=== PATIENT | male | born 1960 | race Caucasian/White ===

== ENCOUNTER 2018-11-14 15:00 | Outpatient (CLI) | payer BC, SELFPAY ==
--- NOTE | 2018-11-14 15:45 | DI.RAD_ITS ---
SYMPTOMS/DIAGNOSIS: S/P RT TKR, RECENT FALL, ASSESS IMPLANT STATUS, Z47.89 RIGHT KNEE: Comparison is made with [id number]. A total knee prosthesis has been placed since the previous exam. There is an old fracture deformity of the proximal fibula. No abnormal bony lucencies are seen. There is a joint effusion. IMPRESSION: Unremarkable knee prosthesis. Joint effusion and proximal fibular deformity. RIGHT HIP AND PELVIS: There is a right hip prosthesis. No fracture or dislocation is seen. The left hip shows mild to moderate degenerative changes. IMPRESSION: No acute abnormality.
== END 2018-11-14 15:20 ==
PROVIDERS: PCP Family Medicine; Visit Provider Orthopaedic Surgery Adult Reconstructive Orthopaedic Surgery
DX: Z96.641 Presence of right artificial hip joint (principal); M16.12 Unilateral primary osteoarthritis, left hip; Z96.651 Presence of right artificial knee joint; M25.461 Effusion, right knee; W19.XXXA Unspecified fall, initial encounter
CPT/HCPCS: 73502; 73560

== ENCOUNTER 2019-04-27 09:43 | Outpatient (CLI) | payer BC, SELFPAY ==
[2019-04-30 12:26] LABS: Hepatitis C Ab w Rflx HCV PCR Negative (NEGAT)
== END 2019-04-27 10:03 ==
PROVIDERS: PCP Family Medicine; Visit Provider Family Medicine
DX: Z11.59 Encounter for screening for other viral diseases (principal)
CPT/HCPCS: 36415; 86803

== ENCOUNTER 2020-01-25 08:04 | Outpatient (CLI) | payer BC, SELFPAY ==
--- NOTE | 2020-01-25 11:00 | DI.MRI_ITS ---
EXAM: MR CERVICAL SPINE WO CLINICAL HISTORY: RADICULOPATHY, NECK PAIN, M54.2 TECHNIQUE: Multiplanar multisequence MRI of the cervical spine was performed without intravenous con trast. COMPARISON: No exams were available for comparison FINDINGS: There is normal signal in the spinal cord. There is no evidence of tonsillar ectopia. At C7-T1, there is no significant central spinal canal or left neural foraminal stenosis. There is a small right paracentral disc herniation causing mild narrowing of the right neural foramen. At C6-C7, there is prominence of the osteophyte disc complex narrowing the AP diameter of the central spinal canal to 9 mm. Degenerative changes of the uncovertebral joints causes moderate right and mi ld left neural foraminal stenosis. At C5-C6, there is prominence of the osteophyte disc complex causing central spinal canal stenosis na rrowing the AP diameter of the canal to 6 mm. Degenerative changes of the uncovertebral joints cause moderate bilateral neural foraminal stenosis. At C4-C5, there is prominence of the osteophyte disc complex. Mild narrowing of the AP diameter of t he central spinal canal is noted. It measures 9 mm. There is mild bilateral neural foraminal narrow ing present. At C3-C4 there is no focal disc herniation, central spinal canal or significant neural foraminal sten osis. At C2-C3, there is no focal disc herniation, central spinal canal or significant neural foraminal abdulaziz nosis. Marrow signal is within normal limits. There is a large disc herniation at T1-T2. It is incompletely imaged on this examination. There myers s appear to be central spinal canal narrowing as a result. IMPRESSION: 1. Multilevel degenerative changes in the cervical spine causing central spinal canal or neural kwan inal stenosis. The findings are most marked from C4-C5 through C6-C7. 2. Disc herniation at T1-T2 which is incompletely imaged on this examination. MRI of the thoracic sp ine should be considered for further evaluation. DATA REPOSITORY:
== END 2020-01-25 08:24 ==
PROVIDERS: PCP Family Medicine; Visit Provider Family Medicine
DX: M54.2 Cervicalgia (principal); M54.12 Radiculopathy, cervical region; M50.321 Other cervical disc degeneration at C4-C5 level; M50.322 Other cervical disc degeneration at C5-C6 level; M50.323 Other cervical disc degeneration at C6-C7 level; M50.33 Other cervical disc degeneration, cervicothoracic region
CPT/HCPCS: 72141

== ENCOUNTER 2020-03-11 02:29 | Outpatient (CLI) | payer BC, SELFPAY ==
--- NOTE | 2020-03-11 | DI.RAD_ITS ---
EXAM: XR CERVICAL SPINE 1V CLINICAL HISTORY: S/P CERVICAL SPINAL FUSION,Z98.1, TECHNIQUE: COMPARISON: MR MR CERVICAL SPINE WO from 01/25/2020 FINDINGS: Single lateral view of the cervical spine was obtained. There are fixation devices at the C5-6 and C 6-7 levels which overlie the vertebral bodies. There is a slight lower cervical kyphosis. Mild hype rtrophic spurring noted anteriorly at C4-5 vertebral endplates. Disc space narrowing noted at C4-5. No other significant abnormality seen. IMPRESSION:
== END 2020-03-11 02:49 ==
PROVIDERS: PCP Family Medicine; Visit Provider Physician Assistant Medical
DX: Z98.1 Arthrodesis status (principal); M50.321 Other cervical disc degeneration at C4-C5 level
CPT/HCPCS: 72020

== ENCOUNTER 2020-06-25 01:57 | Outpatient (CLI) | payer BC, SELFPAY ==
--- NOTE | 2020-06-25 | DI.RAD_ITS ---
EXAM: XR CERVICAL SPINE COMP 4-5V CLINICAL HISTORY: S/P CERVICAL SPINAL FUSION,Z98.1 TECHNIQUE: COMPARISON: CR XR CERVICAL SPINE 1V from 03/11/2020 FINDINGS: Five views were obtained. There are anterior fusions with prosthetic discs at C5-6 and C6-7. These appear unchanged in alignment comparison examination of March 11. There is multilevel facet hypertro phy and there may be mild narrowing of neural foramina on the right at C3-4 C5-6 and C6 seven, and on the left at C4-5, C5-6, and C6-7. No other significant abnormality seen. 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 RADIATION DOSE DELIVERED: Total DLP
== END 2020-06-25 02:17 ==
PROVIDERS: PCP Family Medicine; Visit Provider Neurological Surgery
DX: M47.812 Spondylosis without myelopathy or radiculopathy, cervical region (principal); Z98.1 Arthrodesis status
CPT/HCPCS: 72050

== ENCOUNTER 2020-08-06 04:43 | Outpatient (CLI) | payer BC, SELFPAY ==
[2020-08-06 12:58] LABS: HCT 45.5 % (40.0-50.0); HGB 15.8 g/dL (13.5-17.5); MCH 31.7 pg (27.0-33.0); MCHC 34.7 % (32.0-36.0); MCV 91.4 fL (80-95); MPV 9.6 fL (8.0-11.0); Platelet Count 193 10^3/uL (130-400); RBC 4.98 10^6/uL (4.36-5.78); RDW 12.2 % (11.8-14.1); RDW-SD 40.6 fL; WBC 5.84 10^3/uL (4.4-10.8)
[2020-08-06 13:36] LABS: ALT 23 U/L (16-63); AST 15 U/L (15-37); Albumin 3.8 g/dL (3.4-5.0); Alkaline Phosphatase 70 U/L (46-116); Anion Gap 5.6 mmol/L (3-11); BUN 16 mg/dL (7-18); Bilirubin, Total 0.5 mg/dL (0.2-1.0); CO2 29.4 mmol/L (21.0-32.0); CREATININE 1.16 mg/dL (0.70-1.30); Calcium 8.8 mg/dL (8.5-10.1); Calculated LDL 107 mg/dL (<100); Chloride 106 mmol/L (98-107); Cholesterol 163 mg/dL (<200); Glucose 94 mg/dL (74-106); HDL Cholesterol 41 mg/dL (40-60); Potassium 4.7 mmol/L (3.5-5.1); Sodium 141 mmol/L (136-145); Total Protein 7.2 g/dL (6.4-8.2); Triglyceride 77 mg/dL (<150)
== END 2020-08-06 05:03 ==
PROVIDERS: PCP Family Medicine; Visit Provider Family Medicine
DX: Z00.00 Encounter for general adult medical examination without abnormal findings (principal); Z13.220 Encounter for screening for lipoid disorders; Z13.228 Encounter for screening for other metabolic disorders
CPT/HCPCS: 36415; 80053; 80061; 85027

== ENCOUNTER 2021-08-11 02:34 | Outpatient (CLI) | payer BC, SELFPAY ==
[2021-08-11] MEDS: Albuterol HFA 18 GM 200 PUFF INH IH (14:54)
[2021-08-11] MEDS: Inhaler, Assist Device 1 EACH MC (14:54)
--- NOTE | 2021-08-21 10:33 | W.PFT ---
Date of service: 08/11/21 Time of Service: 13:00 Pulmonary Function Test Result Requesting Provider Yamileth Hernandez Indications: Upper airway congestion Interpretation Spirometry: There is no airflow obstruction. There is no significant bronchodilator effect. Lung Volumes: Lung volumes are normal. Diffusion Capacity: The diffusion is normal. Airway Pressure: Airways resistance is normal. Impression Normal pulmonary function testing. Clinical Correlation therefore is recommended.
== END 2021-08-11 02:35 | disposition home or self-care (01) ==
LOC: RT 02:35
PROVIDERS: PCP Family Medicine; Visit Provider Family Medicine
DX: J98.8 Other specified respiratory disorders (principal)
CPT/HCPCS: 94060; 94726; 94729

== ENCOUNTER 2021-09-09 12:08 | Outpatient (REF) | payer BC, SELFPAY ==
--- NOTE | 2021-09-09 11:00 | SKI_PTH ---
PATIENT: Dimitri Middleton LOC: N U#:[id number] AGE/SX: 61/M ROOM: RE09/09/[address]: Yamileth Hernandez : 1960 BED: DIS: 09/09/2021 SPEC #: [id number] RECD: 09/09/21 12:51 STATUS: KENYA BRODY #: [id number] SINAN: 09/09/21 11:[address]: Yamileth Hernandez DEPT: Surgical Specimen RECD BY: Rehana Freitas Tissues: 1 - SKIN BIOPSY(SHAVE/PUNCH) Procedures: SKIN LEVEL 4 Comments: [id number]
== END 2021-09-09 12:09 | disposition home or self-care (01) ==
LOC: LBN 12:08
PROVIDERS: PCP Family Medicine; Visit Provider Family Medicine
DX: L82.1 Other seborrheic keratosis (principal)
CPT/HCPCS: 88305

== ENCOUNTER 2021-09-30 12:38 | Outpatient (CLI) | payer BC, SELFPAY ==
--- NOTE | 2021-09-30 11:00 | DI.RAD_ITS ---
Exam(s) XR KNEE LT 3V AP,LAT,AYAKA EXAM: XR KNEE LT 3V AP,LAT,AYAKA CLINICAL HISTORY: left knee pain, M25.562, G89.29. TECHNIQUE: 2D digital imaging was performed of the left knee. Three images were obtained. AP, PA t unnel and lateral views were obtained. COMPARISON: No previous for comparison. FINDINGS: BONES: No acute fracture is present. No bony destructive lesion is seen. Enthesophytes are seen at t he superior patella. JOINTS: There is tricompartment periarticular spurring. Joint space narrowing is seen in the femoral tibial joint. No joint effusion is seen. SOFT TISSUE: Surgical clips are seen in the soft tissues. IMPRESSION: Degenerative changes in the left knee. DATA REPOSITORY: RADIATION DOSE DELIVERED:
== END 2021-09-30 12:58 ==
PROVIDERS: PCP Family Medicine; Visit Provider Family Medicine
DX: M25.562 Pain in left knee (principal); M17.12 Unilateral primary osteoarthritis, left knee; G89.29 Other chronic pain
CPT/HCPCS: 73562

== ENCOUNTER 2023-05-20 07:50 | Day surgery (SDC) | payer BC, SELFPAY ==
--- NOTE | 2023-05-19 22:12 | PDOC.DSDIS_ITS ---
Date of service: 05/20/23 Time of Service: 10:54 Discharge Plan Disposition Patient Disposition: Home Condition: Good Discharge Details Reason For Visit: colon scope Attending Provider: Delmi Richardson Primary Care Provider: Yamileth Hernandez Home Meds and New Rx's Prescriptions: Continued diclofenac sodium [Voltaren Arthritis Pain] 1 % gel 4 g topical QID Qty: 100 3RF Rx Instructions: apply to single knee, ankle, foot; for foot includes sole/toes/top of foot meclizine 12.5 mg tablet 12.5 mg PO Q6H PRN Qty: 50 1RF oxycodone 10 mg tablet 10 mg PO DAILY MDD 10mg PRN (Reason: pain) Qty: 10 0RF Discontinued bisacodyl [Dulcolax (bisacodyl)] 5 mg tablet,delayed release (DR/EC) 5 mg PO ONCE Qty: 4 0RF Rx Instructions: Take per colonoscopy instructions provided by ordering providers office polyethylene glycol 3350 17 gram/dose powder 17 g PO ONCE Qty: 238 0RF Rx Instructions: Take per colonoscopy instructions provided by ordering providers office Discharge Instructions Additional Instructions: DSU Colonoscopy Post- Op Instructions Instructions for Everyone who is given Anesthesia: For your safety, please do the following for the next twenty-four (24) hours: *Do Not operate a motor vehicle (car, truck, motorcycle, etc.) *Do Not drink alcoholic beverages or use any recreational drugs for the first 24 hours or while taking pain medications. The medications in your body may have a reaction that can be dangerous. *Do Not make any important decisions or sign any important papers. Findings: normal Follow up: Repeat in 10 yrs time 1. No lifting over 20 pounds or strenuous activity for the first 24 hours after your procedure. After 24 hours there are no restrictions on your activity but you may feel fatigued for a few days. 2. After you arrive home you may have a light meal and return to your normal diet as you can tolerate it without feeling sick to your stomach. 3. You may have a bloated, gaseous feeling in your belly (abdomen) after a colonoscopy. Passing gas and belching will help. Walking or lying down on your left side with your knees flexed may relieve the discomfort. Call the office at [phone] (Office) or [phone] (Hospital) right away if you notice any of the following: a.Vomiting of blood or ?coffee ground stools?. b.Rectal bleeding 1Tbsp, blood clots or continuous bleeding. c.Severe belly (abdominal) pain. d.A hard distended belly (abdomen) and an inability to pass gas. 4. Please don?t expect to have a normal BM (bowel movement) for 2-3 days after your procedure. 5. If there are questions regarding the findings of your procedure, please contact your doctor 6. If you are unable to contact your doctor with a problem, contact the hospital at [phone]. 7. Continue all your regular medications unless directed otherwise. I understand the above instructions and have no questions. Signature of Patient or Adult Escort Name of Responsible Adult Escort Signature of Nurse Date/Time Activity:: see above Diet:: see abpve Discharge Orders Discharge Orders: Discharge Order (Routine); Ordered 05/20/23 Ordered By: Delmi Richardson DS: Diagnosis Discharge Diagnosis (1) Urinary incontinence: Status: Acute (2) Obstructive sleep apnea hypopnea, mild: Status: Acute (3) Screening for malignant neoplasm performed: Status: Acute Asessment and Plan: The patient is seen and examined after their colonoscopy.? The patient has been able to pass gas.? They are not having abdominal pain.? They have been able to tolerate liquids and a snack.? They do not have any nausea or vomiting.? They are not having any chest pain or shortness of breath.??? They are not having any rectal bleeding. Their vital signs have been stable-see nursing notes. We discussed findings during their colonoscopy, and any biopsies that were done/polyps that were removed. The patient will be sent a letter with any biopsy results, and when to repeat the colonoscopy.-see discharge instructions. Patient was given explicit instructions to follow-up regarding colonoscopy-refer to discharge instructions.? We reviewed resumption of medications. Patient verbalized understanding and discharged in stable and satisfactory condition- See nursing notes.
--- NOTE | 2023-05-19 22:14 | COLE_ITS ---
Date of service: 05/20/23 Time of Service: 10:00 Colonoscopy Report Date of procedure: 05/20/23 Pre-op diagnosis general: CRC screening Post-op diagnosis procedure note: other (normal ) Surgeon: Delmi Richardson Anesthesia Type: General:No Airway Estimated blood loss (mL): 0 Complications: None Disposition: same day Prep: Miralax/Dulcolax Retraction Time: 9 Procedure Description: After informed consent was obtained the patient was taken to the procedure room and placed in a left decubitous position. Monitors were applied and a time out was done. The patients name, date of , procedure, allergies to medications and metal in their body was reviewed. The patient was then sedated. Once sedated and comfortable a rectal exam was done. External exam was normal. Internal exam revealed a normal sphincter tone and no palpable masses. The p rostate normal. The scope was then introduced and retrofelexed. No internal hemorrhoids were identified. The scope was then advanced to the cecum without difficulty. The TI and appendiceal orifice were identified. The prep was BBPS 3 in all segments for a total of 9. The scope was then slowly retracted over 9 minutes back into the rectum. There are no polyps, AVMs, or diverticula visualized. The mucosa is pink and healthy with a normal vascular pattern. The scope was removed and the patient was woken up and taken back to Same day surgery in stable condition. The patient tolerated the procedure well and there were no immediate complications. Follow up: The patient should follow up in 10 years unless they develop changes in bowel habits or other new gastrointestinal complaints.
[2023-05-20 08:05] VITALS: BP 129/71; PULSE 46; RESP 19; TEMP 36.6; O2SAT 99
[2023-05-20] MEDS: Lactated Ringers 1,000 ML 80 ML IV (08:16)
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
[2023-05-20 09:34] VITALS: BMI 35.0
[2023-05-20 10:17] VITALS: BP 94/59; PULSE 44; RESP 16; TEMP 36.2; O2SAT 94
[2023-05-20 10:47] VITALS: BP 106/71; PULSE 50; RESP 18; TEMP 36.1; O2SAT 98
--- NOTE | 2023-05-20 11:38 | W.ANESPOSTOP ---
Postoperative Evaluation Date, Time and Location Date Performed: 05/20/23 Time Performed: 10:55 Patient Location: Day Surgery Unit Vital Signs Most Recent Imported Vital Signs: Most Recent Vital Signs Temp Pulse Resp BP Pulse Ox 36.1 C L 50 L 18 106/71 98 05/20/23 10:47 05/20/23 10:47 05/20/23 10:47 05/20/23 10:47 05/20/23 10:47 Pain Score Most Recent Pain Score: Most Recent Pain Score Pain Level 0 05/20/23 10:47 Assessment Mental Status: Awake (Alert & Oriented to Patient Baseline) Airway and Respiratory Function: Patent airway with normal (patient baseline) respiratory exam Cardiovascular Function: Hemodynamically Stable Hydration Status: Adequately Hydrated Nausea & Vomiting: No Nausea or Vomiting Pain: Pt. Denies Any Pain Peripheral Nerve Block: Patient did not receive a nerve block
== END 2023-05-20 11:33 | disposition home or self-care (01) ==
PROVIDERS: PCP Family Medicine; Visit Provider Surgery
PROC: 0DJD8ZZ Inspection of Lower Intestinal Tract, Via Natural or Artificial Opening Endoscopic (ICD-10-PCS; CPT 45378; principal; 2023-05-20 09:15)
DX: Z12.11 Encounter for screening for malignant neoplasm of colon; G47.33 Obstructive sleep apnea (adult) (pediatric)
CPT/HCPCS: 45378

== ENCOUNTER 2023-08-22 03:51 | Outpatient (CLI) | payer BC, SELFPAY ==
[2023-08-22 14:12] LABS: Calculated LDL 86 mg/dL (<100); Cholesterol 159 mg/dL (<200); HDL Cholesterol 43 mg/dL (40-60); Triglyceride 154 mg/dL (<150)
== END 2023-08-22 03:52 | disposition home or self-care (01) ==
PROVIDERS: PCP Family Medicine; Visit Provider Family Medicine
DX: E66.8 Other obesity (principal); Z13.6 Encounter for screening for cardiovascular disorders
CPT/HCPCS: 36415; 80061

== ENCOUNTER 2023-08-22 14:08 | Outpatient (REF) | payer BC, SELFPAY ==
--- NOTE | 2023-08-22 14:00 | SKI_PTH ---
PATIENT: Dimitri Middleton LOC: [facility] U#:[id number] AGE/SX: 63/M ROOM: RE08/22/[address]: Nay Umanzor MD : 1960 BED: DIS: 08/22/2023 SPEC #: [id number] RECD: 08/22/23 16:39 STATUS: KENYA REElizabeth #: [id number] SINAN: 08/22/23 14:[address]: Nay Umanzor DEPT: Surgical Specimen RECD BY: Rehana Freitas ENTERED: 08/22/23 16:43 SP TYPE: DAYANA BROWN DR: Yamileth Hernandez Tissues: 1 - SKIN BIOPSY(SHAVE/PUNCH) Procedures: SKIN LEVEL 4 Comments: [id number]
== END 2023-08-22 14:09 | disposition home or self-care (01) ==
LOC: LBN 14:08
PROVIDERS: PCP Family Medicine; Visit Provider Surgery
DX: L30.8 Other specified dermatitis (principal); L98.8 Other specified disorders of the skin and subcutaneous tissue; L90.5 Scar conditions and fibrosis of skin
CPT/HCPCS: 88305

== ENCOUNTER 2023-10-12 15:29 | Outpatient (CLI) | payer BC, SELFPAY ==
--- NOTE | 2023-10-12 15:15 | RT.EKG_ITS ---
APPROVED REPORT Exam: Resting ECG Reason for Exam: bradycardia Patient Location: O HR:51 bpm ECG Measurements Heart Rate 51 AXIS GA 164 P 12 QRSd 95 QRS -9 QT 435 T 21 QTc 401 Conclusion Sinus rhythm...normal P axis, V-rate 50- 99 I have reviewed and interpreted ECG and agree with software generated interpretation.
== END 2023-10-12 15:30 | disposition home or self-care (01) ==
LOC: DI.CM 15:29
PROVIDERS: PCP Family Medicine; Visit Provider Family Medicine
DX: R00.1 Bradycardia, unspecified (principal)
CPT/HCPCS: 93010

== ENCOUNTER 2024-07-20 13:52 | Outpatient (CLI) | payer MEDICARE, SELFPAY ==
[2024-07-20 11:45] LABS: ALT 22 U/L (16-63); AST 15 U/L (15-37); Albumin 3.7 g/dL (3.4-5.0); Alkaline Phosphatase 85 U/L (46-116); Anion Gap 8.1 mmol/L (3-11); BUN 15 mg/dL (7-18); Bilirubin, Total 0.47 mg/dL (0.2-1.0); CO2 26.9 mmol/L (21.0-32.0); CREATININE 1.5 mg/dL (0.70-1.30); Calcium 9.1 mg/dL (8.5-10.1); Chloride 108 mmol/L (98-107); Estimated GFR 51.35 (mL/min/1.73m2); Glucose 91 mg/dL (74-106); Potassium 4.4 mmol/L (3.5-5.1); Sodium 143 mmol/L (136-145); Total Protein 7.8 g/dL (6.4-8.2)
== END 2024-07-20 13:53 | disposition home or self-care (01) ==
LOC: LBO 13:52
PROVIDERS: PCP Family Medicine; Visit Provider Family Medicine
DX: Z00.00 Encounter for general adult medical examination without abnormal findings (principal); R42 Dizziness and giddiness; H53.8 Other visual disturbances; R00.1 Bradycardia, unspecified
CPT/HCPCS: 36415; 80053

== ENCOUNTER 2024-08-03 19:09 | Outpatient (REF) | payer MEDICARE, SELFPAY ==
[2024-08-03 14:07] LABS: COMMENT (LAB VIEW ONLY) 48.81 mg/dL; PROTEIN < 6.0 mg/dL
== END 2024-08-03 19:10 | disposition home or self-care (01) ==
LOC: LBN 19:09
PROVIDERS: PCP Family Medicine; Visit Provider Family Medicine
DX: N18.9 Chronic kidney disease, unspecified (principal)
CPT/HCPCS: 82565; 84156

== ENCOUNTER 2024-08-07 01:26 | Outpatient (CLI) | payer MEDICARE, SELFPAY ==
--- NOTE | 2024-08-07 06:15 | DI.MRI_ITS ---
Exam(s) MR BRAIN WO/W EXAM: MR BRAIN WO/W CLINICAL HISTORY: lt eye blurred vision,dizziness,r42,h53.8. TECHNIQUE: Multiplanar multisequence MRI of the brain was performed. CONTRAST MATERIAL: IV Contrast: 20 ML of Dotarem contrast administered. COMPARISON: No exams were available for comparison FINDINGS: VENTRICLES AND EXTRA AXIAL SPACES: Normal in size and morphology for the patient's age. HEMORRHAGE: None. CEREBRAL PARENCHYMA: No focus of restricted diffusion to suggest acute infarct. No space-occupying le jen identified. BRAINSTEM/CEREBELLUM: Normal. CALVARIUM: Normal. ENHANCEMENT: No suspicious enhancement identified. VISUALIZED PARANASAL SINUSES/MASTOIDS: Clear. Orbits: Unremarkable. Extraocular muscles and optic nerves are symmetric. No abnormal signal within the intraconal fat. Globes appear intact. Pituitary: Not enlarged. Vasculature: Normal flow voids. IMPRESSION: Unremarkable MRI of the brain. DATA REPOSITORY:
[2024-08-07] MEDS: Normal Saline Flush 10 ML SYR IVP (08:47)
[2024-08-07] MEDS: Gadoterate meglumine 20 ML SYRINGE IVP (08:48)
== END 2024-08-07 01:46 ==
LOC: DI 01:26
PROVIDERS: PCP Family Medicine; Visit Provider Family Medicine
DX: H53.8 Other visual disturbances (principal); R42 Dizziness and giddiness
CPT/HCPCS: 70553

== ENCOUNTER 2024-08-13 12:55 | Outpatient (RCR) | payer MEDICARE, SELFPAY | END 2024-09-08 23:59 | disposition home or self-care (01) | LOC: CARDOPNVT 12:55 | PROVIDERS: PCP Family Medicine; Visit Provider Internal Medicine Cardiovascular Disease | DX: R00.1 Bradycardia, unspecified (principal); Z51.89 Encounter for other specified aftercare | CPT/HCPCS: 93227; 93225; 93226 ==

== ENCOUNTER 2024-08-17 15:07 | Outpatient (CLI) | payer MEDICARE, SELFPAY ==
[2024-08-17 16:17] LABS: Uric Acid 8.1 mg/dL (3.5-7.2)
[2024-08-17 23:19] LABS: PSA, Screening 0.3 ng/mL (<=4.5)
[2024-08-19 13:18] LABS: eGFR by Cystatin C 76 mL/min/BSA (>60)
== END 2024-08-17 15:08 | disposition home or self-care (01) ==
LOC: LBO 15:08
PROVIDERS: PCP Family Medicine; Visit Provider Family Medicine
DX: N18.9 Chronic kidney disease, unspecified (principal); Z12.5 Encounter for screening for malignant neoplasm of prostate; Z23 Encounter for immunization; Z72.0 Tobacco use; I10 Essential (primary) hypertension; E66.812 Obesity, class 2; E66.09 Other obesity due to excess calories; Z68.36 Body mass index [BMI] 36.0-36.9, adult; R42 Dizziness and giddiness; H53.8 Other visual disturbances; R00.1 Bradycardia, unspecified
CPT/HCPCS: 36415; 82610; 84153; 84550

== ENCOUNTER 2024-08-22 01:09 | Outpatient (CLI) | payer MEDICARE, SELFPAY ==
--- NOTE | 2024-08-22 09:40 | DI.US_ITS ---
Exam(s) US AAA SCREENING EXAM: US AAA SCREENING CLINICAL HISTORY: hx tobacco abuse, screening for aaa,z72.0 COMPARISON: No exams were available for comparison FINDINGS: Abdominal Aorta: Proximal: 2.0 x 1.9 cm Mid: 1.8 x 1.9 cm Distal: 2.0 x 1.9 cm Iliac's: Right: 1.3 x 0.9 cm Left: 1.3 x 1.3 cm No significant atherosclerotic disease is seen. IMPRESSION: No evidence of abdominal aortic aneurysm. DATA REPOSITORY:
== END 2024-08-22 01:29 ==
LOC: DI 01:09
PROVIDERS: PCP Family Medicine; Visit Provider Family Medicine
DX: Z72.0 Tobacco use (principal); Z13.6 Encounter for screening for cardiovascular disorders
CPT/HCPCS: 76706

== ENCOUNTER 2025-07-29 16:25 | Outpatient (CLI) | payer MEDICARE, SELFPAY ==
--- NOTE | 2025-07-29 16:38 | DI.RAD_ITS ---
Exam(s) XR LUMBAR SPINE COMPLETE EXAM: XR LUMBAR SPINE COMPLETE CLINICAL HISTORY: M54.41,M54.42,G89.29 LBP, Lt leg numbness/pain. TECHNIQUE: 2D digital imaging was performed. Five views. COMPARISON: No exams were available for comparison FINDINGS: BONES: No fracture or destructive lesion. Vertebral body heights are maintained. There are prominent endplate osteophytes with with bridging. Smaller osteophytes are seen at L4-5 and L5-S1. Facet degenerative changes noted throughout. Right hip prosthesis. DISKS: Disc space narrowing noted throughout. ALIGNMENT: Mild to moderate degenerative dextro rotoscoliosis. No spondylolysis or spondylolisthesis. SOFT TISSUE: Normal. IMPRESSION: Severe degenerative changes throughout the lumbar spine. Degenerative dextro rotoscoliosis. DATA REPOSITORY: RADIATION DOSE DELIVERED:
--- NOTE | 2025-07-29 17:10 | DI.RAD_ITS ---
Exam(s) XR KNEE LT 3V AP,LAT,AYAKA EXAM: XR KNEE LT 3V AP,LAT,AYAKA CLINICAL HISTORY: M25.562 Pain Left knee, Worsening pain. TECHNIQUE: 2D digital imaging was performed. Three views. COMPARISON: CR XR KNEE LT 3V AP,LAT,AYAKA from 09/30/2021 FINDINGS: BONES: No acute fracture is present. Old proximal fibular fracture. No bony destructive lesion is seen. JOINTS: There is severe narrowing of the lateral femoral tibial joint space and moderate narrowing of the medial femoral tibial joint space. There is periarticular spurring. There is also prominent spurring at the patellofemoral joint. There is a chronic appearing bony projection at the superior aspect of the patella. There is enthesophyte at the quadriceps insertion. No joint effusion is seen. SOFT TISSUE: Vascular clips. IMPRESSION: Advanced degenerative changes of the left knee. DATA REPOSITORY: RADIATION DOSE DELIVERED:
== END 2025-07-29 16:45 ==
LOC: DI 16:26
PROVIDERS: PCP Family Medicine; Visit Provider Nurse Practitioner Family
DX: M54.41 Lumbago with sciatica, right side (principal); M54.42 Lumbago with sciatica, left side; G89.29 Other chronic pain; M25.562 Pain in left knee
CPT/HCPCS: 73562; 72110

== ENCOUNTER → 2025-08-15 14:41 | Outpatient (BNVA) | payer MEDICARE, SELFPAY | PROVIDERS: PCP Family Medicine; Referring Provider Family Medicine; Visit Provider Student in an Organized Health Care Education/Training Program | DX: M17.12 Unilateral primary osteoarthritis, left knee (principal); T84.82XA Fibrosis due to internal orthopedic prosthetic devices, implants and grafts, initial encounter; Z96.651 Presence of right artificial knee joint | CPT/HCPCS: 99214 ==

== ENCOUNTER → 2025-08-27 02:04 | Outpatient (CLI) | payer MEDICARE, SELFPAY ==
--- NOTE | 2025-08-27 06:45 | DI.MRI_ITS ---
Exam(s) MR LUMBAR SPINE WO EXAM: MR LUMBAR SPINE WO CLINICAL HISTORY: subacute left leg radiculopathy, h/o surgery,m54.16,radiculopathy. TECHNIQUE: Multiplanar multisequence MRI of the Lumbar spine was performed. COMPARISON: MR MRI - LUMBAR SPINE WO CONTRAST from 01/07/2017 CR XR KNEE LT 3V AP,LAT,AYAKA from 07/29/2025 CR XR LUMBAR SPINE COMPLETE from 07/29/2025 FINDINGS: Bones: The last intervertebral disc space is designated the L5/S1 level for the numbering purpose of this examination. The vertebral body heights are well maintained. Prominent endplate osteophytes. Alignment: Mild degenerative scoliosis. The marrow signal characteristics are unremarkable. Cord: The conus tip ends at the L1-2 level. It is of normal size and signal intensity. T12-L1: No focal disc herniation is present. No central spinal canal stenosis.No neural foraminal stenosis. L1-2:Mild loss of disc height. Endplate osteophytes projecting mainly anteriorly. No focal disc herniation is present. No central spinal canal stenosis.No neural foraminal stenosis. L2-3:Mild loss of disc height eccentric toward the left. Prominent left-sided osteophytes. Mild facet degenerative changes. Mild central canal stenosis. Severe left and mild to moderate right neural foraminal narrowing. L3-4: Severe loss of disc height, eccentric toward the left where there are prominent endplate osteophytes. Degenerative signal changes are present in the endplates.No focal disc herniation is present. No central spinal canal stenosis.Severe left and moderate right neural foraminal narrowing. L4-5:Mild loss of disc height eccentric toward the right. Broad-based disc bulging. Facet degenerative changes and ligamentous hypertrophy combining to produce severe central canal stenosis. Moderate to severe bilateral neural foraminal narrowing. No focal disc herniation is present. L5-S1: Onjw-xw-oyvqcntb loss of disc height, eccentric toward the right. Endplate osteophytes projecting toward the right. Mild facet joint degenerative changes. Mild diffuse disc bulging. Mild left and moderate right neural foraminal narrowing.No focal disc herniation is present. No central spinal canal stenosis The visualized SI joints and sacrum are unremarkable. Soft tissues: The paraspinal soft tissues are unremarkable. IMPRESSION: Advanced degenerative disc changes throughout. The findings are most severe at L4-5 where severe central canal stenosis as well as bilateral neural foraminal narrowing.. DATA REPOSITORY:
== END ==
LOC: DI 02:04
PROVIDERS: PCP Family Medicine; Visit Provider Family Medicine
DX: M54.16 Radiculopathy, lumbar region (principal); M51.360 Other intervertebral disc degeneration, lumbar region with discogenic back pain only
CPT/HCPCS: 72148

== ENCOUNTER 2025-08-27 03:30 | Outpatient (CLI) | payer MEDICARE, SELFPAY ==
[2025-08-27 11:42] LABS: Anion Gap 8.5 mmol/L (3-11); BUN 17 mg/dL (9-23); CO2 24.5 mmol/L (20.0-31.0); Calcium 9.0 mg/dL (8.3-10.6); Chloride 110 mmol/L (98-107); Glucose 94 mg/dL (74-106); Potassium 4.3 mmol/L (3.5-5.1); Sodium 143 mmol/L (136-145)
[2025-08-27 14:18] LABS: Hemoglobin A1C 5.2 % (<5.7)
[2025-08-28 15:16] LABS: PSA, Screening 0.4 ng/mL (<=4.5)
== END 2025-08-27 03:31 | disposition home or self-care (01) ==
LOC: LBO 03:30
PROVIDERS: PCP Family Medicine; Visit Provider Family Medicine
DX: Z12.5 Encounter for screening for malignant neoplasm of prostate (principal); R73.01 Impaired fasting glucose; I10 Essential (primary) hypertension; N18.31 Chronic kidney disease, stage 3a; E66.812 Obesity, class 2; E66.09 Other obesity due to excess calories; Z68.36 Body mass index [BMI] 36.0-36.9, adult
CPT/HCPCS: 36415; 80048; 84153; 83036

== ENCOUNTER → 2025-09-04 01:51 | Outpatient (CLI) | payer MEDICARE, SELFPAY ==
--- NOTE | 2025-09-04 09:38 | DI.NM_ITS ---
Exam(s) NM BONE SCAN 3 PHASE EXAM: NM BONE SCAN 3 PHASE CLINICAL HISTORY: R KNEE PAIN, ?LOOSENING PROSTHETIC DEVICE,T84.84XA. TECHNIQUE: Injected Dose: 25 mCi Tc-99m MDP COMPARISON: CR RIGHT KNEE 3 VIEWS from 01/01/2013 CR XR knee RT 2V AP,lat from 11/14/2018 CR XR hip RT complete AP pelvis from 11/14/2018 CR XR KNEE LT 3V AP,LAT,AYAKA from 09/30/2021 CR XR LUMBAR SPINE COMPLETE from 07/29/2025 CR XR KNEE LT 3V AP,LAT,AYAKA from 07/29/[address] LOWER EXTREMITY RT WO from 09/04/2025 FINDINGS: Perfusion: There is slightly increased activity at the lateral right knee. Blood Pool: Slightly increased activity laterally in the right leg below the level of the knee prosthesis. Delayed: No suspicious increased activity is noted around the right knee prosthesis. There is increased activity in the left knee joint spaces, greater laterally consistent with jet degenerative changes noted on plain films. There is increased activity in the mid right tibia and fibula as well as in the right ankle she likely secondary to post traumatic findings. No plain films are available of this region. IMPRESSION: 1. No findings to suggest loosening of the knee prosthesis. 2. Increased activity at the left knee consistent with advanced degenerative changes. DATA REPOSITORY:
--- NOTE | 2025-09-04 09:38 | DI.CT_ITS ---
Exam(s) CT LOWER EXTREMITY RT WO EXAM: CT LOWER EXTREMITY RT WO CLINICAL HISTORY: R KNEE PAIN, ? LOOSENING PROSTHETIC DEVICE,T84.84XA. TECHNIQUE: Imaging Protocol: Axial computed tomography images with coronal and sagittal reformatted images were created and reviewed. COMPARISON: CR XR knee RT 2V AP,lat from 11/14/2018 FINDINGS: Bones: The patient has a right total knee arthroplasty. There is no acute fracture or dislocation present. There is some lucency around the tibial component medially. This is unchanged compared to the examination from 11/14/2018. There is no other lucency seen around the orthopedic hardware. There are enthesophytes at the anterior patella. Well corticated osseous densities are seen superior to the patella these appear chronic. There also stable calcifications seen in the anterior and posterior joint space. There is an old proximal fibular fracture deformity. There are no suspicious lytic or sclerotic lesions in the bone. There is minimal fluid in the joint space. Soft Tissues: Atherosclerotic calcification is present. IMPRESSION: 1. There is a stable appearance of the right total knee arthroplasty since 11/14/2018. There are no new lucent areas around the orthopedic hardware to suggest loosening. 2. There is a small amount of fluid in the joint space. 3. There is no acute fracture or dislocation. RADIATION DOSE DELIVERED: 191.49mGy.cm Total DLP 191.49mGy.cm Total DLP DATA REPOSITORY: All CT scans at this facility are submitted to the National Radiology Data Registry (NRDR) Dose Index Registry (DIR) with the [employer] ([employer]). RADIATION OPTIMIZATION: All CT scans at this facility use at least one of these dose optimization techniques: automated exposure control; mA and/or kV adjustment per patient size (includes targeted exams where dose is matched to clinical indication); or iterative reconstruction.
== END ==
LOC: DI 01:52
PROVIDERS: PCP Family Medicine; Visit Provider Student in an Organized Health Care Education/Training Program
DX: T84.84XA Pain due to internal orthopedic prosthetic devices, implants and grafts, initial encounter (principal); M17.12 Unilateral primary osteoarthritis, left knee; Z96.651 Presence of right artificial knee joint
CPT/HCPCS: 73700; 78315

== ENCOUNTER → 2025-09-12 14:06 | Outpatient (BNVA) | payer MEDICARE, SELFPAY | PROVIDERS: PCP Family Medicine; Referring Provider Family Medicine; Visit Provider Student in an Organized Health Care Education/Training Program | DX: T84.82XA Fibrosis due to internal orthopedic prosthetic devices, implants and grafts, initial encounter (principal); M17.12 Unilateral primary osteoarthritis, left knee | CPT/HCPCS: 99214 ==

== ENCOUNTER 2025-10-08 11:15 | Day surgery (SDC) | payer MEDICARE, SELFPAY ==
[2025-10-08] VITALS (33 sets, daily range): BP systolic 112–143; BP diastolic 55–88; PULSE 44–64; RESP 11–21; TEMP 36.1–36.6; O2SAT 95–99; BMI 36.5
--- NOTE | 2025-10-08 07:35 | W.PM.DSUDISC ---
Date of service: 10/08/25 Discharge Plan Disposition Patient Disposition: Home Condition: Good Discharge Details Reason For Visit: Painful right TKA Attending Provider: Clayton Howard Primary Care Provider: Yamileth Hernandez Home Meds and New Rx's Prescriptions: New acetaminophen 500 mg tablet 1,000 mg PO Q8H PRN Qty: 90 0RF Rx Instructions: Take two tablets up to every 8 hours as needed for pain ibuprofen 600 mg tablet 600 mg PO TID PRN (Reason: pain) Qty: 60 0RF oxycodone 10 mg tablet 10 mg PO Q4H PRNQty: 12 0RF Rx Instructions: Take one tablet up to every 4 hours as needed for severe postoperative pain Continued betamethasone valerate 0.1 % cream 1 applic topical BID PRN (Reason: rash) Rx Instructions: apply to affected area for 4 weeks sildenafil 100 mg tablet 100 mg PO DAILY PRN (Reason: sexual activity) Qty: 4.0 0RF Rx Instructions: administer 30 minutes to 4 hours before activity No Action oxycodone 10 mg tablet 10 mg PO BID MDD 20mg PRN (Reason: pain) Qty: 30 0RF Discharge Instructions Additional Instructions: Arthroscopic Synovectomy Discharge Instructions Activity: You should begin moving as soon as possible. You may work on flexion but also equally maintain extension. You may bear weight as tolerated, using crutches only for support/comfort. You should apply CryoCuff to help with swelling and elevate when possible (especially in the first few days). Dressings: The knee dressing may come down after 48 hours. You may shower and get the wound wet at that time. You should keep the wounds covered with a bandaid until follow-up. Medications: - Recommend to take up to 1000mg of Acetaminophen (Tylenol) and 600mg of Ibuprofen (Advil) every 8 hours as needed. These larger strength tablets were called in but you also may use [id number]. - You have also been prescribed a few additional Oxycodone tablets to take as needed for pain. Follow-up: 7-10 days Stand Alone Forms: Portal Information Referrals: Clayton Howard MD [ [facility] STAFF PHYSICIAN, Orthopaedic Surgical] Equipment/Supplies: Partial Weight Bearing Crutches Activity:: Elevate Remove Dressings/Wound Care:: 48 hours Shower/Bathe:: 48 hours Diet:: As Tolerated Discharge Orders Discharge Orders: Discharge Order (Routine); Ordered 10/08/25 Ordered By: Delmi Ledezma
[2025-10-08] MEDS: Gabapentin 300 MG CAP PO (12:46)
[2025-10-08] MEDS: Acetaminophen 500 MG TAB 1000 MG PO (12:46)
[2025-10-08] MEDS: Celecoxib 200 MG CAP 400 MG PO (12:46)
[2025-10-08] MEDS: Lactated Ringers 1,000 ML 80 ML IV (12:55)
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
[2025-10-08] MEDS: ceFAZolin 2 GM/50 ML BAG IVPB (15:05)
[2025-10-08] MEDS: TRANEXAMIC ACID/SOD. CHL. 1,000 MG/100 ML BAG 600 MG IVPB (15:12)
[2025-10-08] MEDS: EPINEPHrine 10 MG/10 ML ML (15:19)
[2025-10-08] MEDS: Bupivacaine 0.25% Pres-Free 30 ML VIAL (15:37)
--- NOTE | 2025-10-08 16:09 | ROE_ITS ---
Operative Note Operative Note PRE-OP DIAGNOSIS: Arthrofibrosis of Knee Replacement -right knee POST-OP DIAGNOSIS: same PROCEDURE: Arthroscopic Synovectomy of 3 Compartments with Manipulation -right knee SURGEON: Clayton Howard ANESTHESIA TYPE: General LMA/ETT Refer to Anesthesia Record ESTIMATED BLOOD LOSS: 10 PATHOLOGY: none sent TOURNIQUET TIME: 0 COMPLICATIONS: None Patient was transported to: PACU Patient's condition: stable Indications: I have seen Paul in clinic for symptoms of arthrofibrosis of the knee following knee replacement surgery. Nonoperative measures were exhausted but disability due to lack of motion persisted. I discussed knee arthroscopy with synovectomy with maniuplation with the patient. I reviewed the risks of the procedure to include, but not limited to, bleeding, infection, pain, continued stiffness, recurrence, blood clot. Despite these risks, the patient elected to proceed. Findings: Preoperative Range of Motion: Flexion: 75 Extension:5 Postoperative Range of Motion: Flexion:100 Extension:5 Procedure Description: Paul was greeted in the preoperative holding area where the correct side was identified and marked. The consent was reviewed with the patient and signed. The history and physical was updated. All questions were answered. He was taken back to the operating room. The patient was placed into the supine position on the operating room table. All bony prominences were well padded. Prophylactic antibiotics in the form of Cefazolin were administered. Preoperative range of motion was assessed as 5 - 75. The right leg was then prepped with Chloraprep and draped in a standard fashion with stockinette and extremity drape. A timeout to confirm correct identity, side and site, procedure, allergies, anesthesia, and medical concerns was performed. A standard lateral portal was made at the lateral border of the patella tendon in line with the inferior pole of the patella, soft spot. The skin and deep tissue was incised sharply and the blunt trochar was inserted atraumatically. At this point had visualization of the femoral component. A superolateral portal was then established with spinal needle localization just superior and lateral to the patella. A knife was taken down through the skin and soft tissue to enter the knee joint. Starting in the superior compartment above the femoral component and anterior to the femur I released all scarring between the anterior femoral synovium and the overlying extensor mechanism. This was taken through all of any noticeable scar tissue until the superior patellar pouch was fully released and mobile. This resection was carried out mostly with electrocautery as well as shaver. Once this was released fully from lateral to medial superiorly I then continue working down the lateral gutter. All scar tissue in the lateral gutter was released so there is normal space and movement between the capsular tissues and the edge of the femoral component and femur. This was taken down through the lateral gutter such that I was able to identify the polyethylene to its posterior corner. There was dense scar tissue throughout this entire portion of the case requiring transection with the electrocautery and then removal and resection with the shaver. Once again, all scar tissue in this area was resected so the polyethylene was easily visible and there is no interposed tissue in the back or the polyethylene was identified. I then co ntinued to work anteriorly. To continue the synovectomy from the lateral compartment to the anterior compartment into the medial compartment, I placed a medial portal under spinal needle localization. Once this was in place it became another working portal and I continued the synovectomy through the anterior compartment to the medial compartment. Once again, I freed up the medial gutter so I was able to visualize the polyethylene from the anterior posterior margins. There is no interposed tissue after full synovectomy was performed. Adhesions between the capsule and the femur were released. This was continued up the medial gutter until it met up with the releases performed previously in the superior compartment. Any remnant scar tissue from around the patella was then removed with a shaver and electrocautery. The arthroscope was brought back into the suprapatellar pouch and the leg was in full extension. The knee was thoroughly irrigated with the arthroscopic fluid on high flow and pressure. Inflow was stopped and excess fluid was removed. The leg was removed from the spider leg link and manipulation was performed. I first push the knee into flexion and was able to obtain 100 degrees. I then worked the knee into extension, slowly applying an anterior to posterior directed pressure with support of the knee and no significant lever arm. This was cycled multiple times until I was able to obtain extension of 5 degrees. The wounds were closed with 4-0 Nylon. 0.25% bupivacaine was injected around the portal sites and into the knee. The wounds were dressed with Xeroform, 4x4 gauze, ABD pad, Kerlix and an RYAN wrap. A cryo-cuff was applied. The patient tolerated the procedure well and was returned to the PACU in a stable condition suffering no known complication.. Date of Procedure: 10/08/25
[2025-10-08] MEDS: HYDROmorphone 2 MG/ML SYR IVP ×4 (16:14→16:42)
--- NOTE | 2025-10-08 16:46 | W.ANESPOSTOP ---
Postoperative Evaluation Date, Time and Location Date Performed: 10/08/25 Time Performed: 16:47 Patient Location: PACU Vital Signs Most Recent Imported Vital Signs: Most Recent Vital Signs Temp Pulse Resp BP Pulse Ox 36.6 C 59 L 19 121/73 96 10/08/25 16:40 10/08/25 16:45 10/08/25 16:45 10/08/25 16:41 10/08/25 16:45 Pain Score Most Recent Pain Score: Most Recent Pain Score Pain Level 5 10/08/25 16:40 Assessment Mental Status: Awake (Alert & Oriented to Patient Baseline) Airway and Respiratory Function: Patent airway with normal (patient baseline) respiratory exam Cardiovascular Function: Hemodynamically Stable Hydration Status: Adequately Hydrated Nausea & Vomiting: No Nausea or Vomiting Pain: Pain is tolerable per patient Peripheral Nerve Block: Patient did not receive a nerve block
[2025-10-08] MEDS: HYDROcodone 5/Acetaminophen 325 TAB PO (17:12)
== END 2025-10-08 18:00 | disposition home or self-care (01) ==
LOC: SUR 11:16
PROVIDERS: PCP Family Medicine; Visit Provider Student in an Organized Health Care Education/Training Program
PROC: (CPT 29870; principal; 2025-10-08 14:00)
DX: T84.82XA Fibrosis due to internal orthopedic prosthetic devices, implants and grafts, initial encounter (principal)
CPT/HCPCS: 29876; J0665; J0690; J1100; J1171; J2003; J2405; J2704; J3010